=== PATIENT | female | born 1980 | race Caucasian/White ===

== ENCOUNTER 2020-07-28 21:13 | Emergency (ER) | payer MEDICAID ==
[~2020-07-28] VITALS: Ht 180.3 cm; Wt 54.4 kg
[2020-07-28 21:33] VITALS: BP 131/79
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
--- NOTE | 2020-07-28 21:51 | NUR ---
JEREMY DE LEÓN CAME TO THE ROOM FOR EVAL. PT WAS NOT THERE.
--- NOTE | 2020-07-28 21:54 | NUR ---
Patient eloped from facility. ER MD notified.
== END 2020-07-28 21:54 | disposition left against medical advice (07) ==
LOC: ER 21:19
DX: K08.89 Other specified disorders of teeth and supporting structures (principal); R50.9 Fever, unspecified; Z53.21 Procedure and treatment not carried out due to patient leaving prior to being seen by health care provider

== ENCOUNTER 2021-01-02 20:02 | Emergency (ER) | payer MEDICAID ==
[~2021-01-02] VITALS: Ht 180.3 cm; Wt 59.0 kg
--- NOTE | 2021-01-02 20:21 | NUR ---
BIBFRIEND FROM PT'S HOME. TO ER BED 12. AAOX4 BUT APPEARS INTOXICATED. NOT IN RESP DISTRESS. AMBULATORY. BROUHT IN FOR ALCOHOL WITHDRAWAL. DURING TRIAGE PT VERBALIZED THAT SHE HAVE THOUGHTS OF HARMING HERSELF BUT NO PLAN. UPON MY ASSESSMENT, PT DENIES SI NOR HI. PT REPORTS LAST DRINK THIS MORNING AND CONSUMMES A BOTTLE OF VODKA A DAYS. PT IS GOWN AND SITTER AT BEDSIDE. WILL MONITPR PT.
[2021-01-02 20:59] LABS: BILIRUBIN,URINE Negative (NEGATIVE); COLOR,URINE YELLOW (YELLOW); LEUKOCYTE ESTERASE ,URINE Negative (NEGATIVE); NITRITE, URINE Negative (NEGATIVE); PROTEIN,URINE Negative (NEGATIVE); UGLUCOSE Negative (NEGATIVE); UROBILINOGEN,URINE 0.2 EU/dL (0.2)
[2021-01-02] MEDS ORDERED: FOLIC ACID 1 MG TABLET ONE (20:59)
[2021-01-02] MEDS ORDERED: ONDANSETRON HCL/PF 4 MG/2 ML VIAL ONE (20:59)
[2021-01-02] MEDS ORDERED: THIAMINE HCL 100 MG TABLET ONE (20:59)
[2021-01-02] MEDS ORDERED: ONDANSETRON HCL/PF 4 MG/2 ML VIAL IVP ONE (21:00)
[2021-01-02] MEDS ORDERED: FOLIC ACID 1 MG TABLET PO ONE (21:00)
[2021-01-02] MEDS ORDERED: THIAMINE HCL 100 MG TABLET PO ONE (21:00)
[2021-01-02] MEDS ORDERED: IV NS 0.9% 1,000 ML BAG IV ONE (21:00)
[2021-01-02 21:01] LABS: BACTERIA,URINE Rare /HPF (None Seen); SQUAMOUS EPITHELIAL CELL,UR Few /HPF (None Seen); WBC,URINE NONE SEEN /HPF (0-3)
[2021-01-02 21:11] LABS: HEMOGLOBIN 11.8 g/dL (11.5-14.8)
[2021-01-02] MEDS ORDERED: LORAZEPAM 0.5 MG TABLET ONE (21:14)
[2021-01-02] MEDS ORDERED: LORAZEPAM 0.5 MG TABLET PO ONE (21:30)
[2021-01-02] MEDS ORDERED: LORAZEPAM INJ 2 MG/ML VIAL IV ONE (21:30)
[2021-01-02 21:50] LABS: BASOPHILS % (AUTO) 0.2 % (0.0-2.0); EOSINOPHILS % (AUTO) 0.7 % (0.0-6.0); HEMATOCRIT 36 % (33-45); LYMPHOCYTES # (AUTO) 3.6 /CMM (0.8-4.8); LYMPHOCYTES % (AUTO) 28.4 % (20.0-44.0); MEAN CORPUSCULAR HGB CONC 32 g/dl (31.0-36.0); MEAN CORPUSCULAR VOLUME 88 fL (82-100); MONOCYTES # (AUTO) 0.3 /CMM (0.1-1.30); MONOCYTES % (AUTO) 2.5 % (2.0-12.0); NEUTROPHILS # (AUTO) 8.6 /CMM (1.8-8.9); NEUTROPHILS % (AUTO) 68.2 % (43.0-81.0); PLATELET COUNT (AUTO) 156 /CMM (150-450); RED BLOOD CELL COUNT(AUTO) 4.12 MIL/uL (4.0-5.2); WHITE BLOOD COUNT (AUTO) 12.7 K/uL (4.3-11.0)
[2021-01-02 21:54] LABS: CALCIUM, SERUM 8.2 mg/dL (8.5-10.1); CARBON DIOXIDE 30 mmol/L (21-32); CHLORIDE 102 mmol/L (98-107); CREATININE 0.8 mg/dL (0.6-1.3); GLUCOSE 100 mg/dL (74-106); POTASSIUM 3.6 mmol/L (3.5-5.1); SODIUM SERUM 143 mmol/L (136-145); UREA NITROGEN, BLOOD 13 mg/dL (7-18)
[2021-01-02 22:02] LABS: ACETAMINOPHEN < 2 ug/ml (10-30); ALANINE AMINOTRANSFERASE 36 U/L (12-78); ALCOHOL, BLOOD 480 mg/dL (0-0); ALKALINE PHOSPHATASE 47 U/L (46-116); ASPARTATE AMINOTRANSFERASE 48 U/L (15-37); BILIRUBIN,DIRECT 0.1 mg/dL (0.0-0.2); BILIRUBIN,TOTAL 0.3 mg/dL (0.2-1.0); TOTAL PROTEIN, SERUM 7.7 g/dL (6.4-8.2)
--- NOTE | 2021-01-02 23:12 | NUR ---
PLEASE CALL LISA POWER, PT EMERGENCY CONTACT. TO TALK TO THE CABLE RESPOOLER.
--- NOTE | 2021-01-02 23:14 | NUR ---
LISA MONROY [phone]
--- NOTE | 2021-01-03 01:00 | NUR ---
PT PLACED ON 2 LITERS SUPPLEMENTAL O2 VIA N/C. PT SATTING 100%
--- NOTE | 2021-01-03 02:32 | NUR ---
PT ASLEEP AND RESTING COMFORTABLY IN BED. VSS. NO ACUTE DISTRESS NOTED. WILL CONTINUE TO MONITOR PT
--- NOTE | 2021-01-03 07:15 | NUR ---
PT ROADTESTED. PT AMBULATORY W/ STEADY GAIT
--- NOTE | 2021-01-03 07:15 | NUR ---
PT AMBULATED TO THE RESTROOM
--- NOTE | 2021-01-03 07:25 | NUR ---
REPORT GIVEN TO NADER ROONEY FOR NAN
--- NOTE | 2021-01-03 07:44 | NUR ---
CALLED LISA MONROY, NO ANSWER, LEFT VM
[2021-01-03] MEDS ORDERED: LORAZEPAM 1 MG TABLET ONE (07:50)
[2021-01-03] MEDS ORDERED: LORAZEPAM 1 MG TABLET PO ONE (08:00)
--- NOTE | 2021-01-03 08:10 | NUR ---
Patient discharged to home in stable condition. Written and verbal after care instructions given Patient and Patients friend anne verbalizes understanding of instruction.
[2021-01-03 08:11] VITALS: BP 117/67
== END 2021-01-03 08:12 | disposition home or self-care (01) ==
LOC: ER 20:03
DX: F10.10 Alcohol abuse, uncomplicated (principal); F32.9 Major depressive disorder, single episode, unspecified; R11.10 Vomiting, unspecified; F43.10 Post-traumatic stress disorder, unspecified; R63.0 Anorexia; R64 Cachexia; Y90.8 Blood alcohol level of 240 mg/100 ml or more; Z68.1 Body mass index [BMI] 19.9 or less, adult
CPT/HCPCS: 36415; 80048; 80076; 80299; 80307; 80320; 81001; 83690; 84703; 85025; 96361; 96374; 99285; J2405; J7030; G0480

== ENCOUNTER 2021-04-09 11:00 | Emergency (ER) | payer MEDICAID ==
[~2021-04-09] VITALS: Ht 180.3 cm; Wt 59.0 kg
[2021-04-09 11:51] LABS: BILIRUBIN,URINE MODERATE (NEGATIVE); LEUKOCYTE ESTERASE ,URINE NEGATIVE (NEGATIVE); NITRITE, URINE NEGATIVE (NEGATIVE); PROTEIN,URINE 30 mg/dl (NEGATIVE); UGLUCOSE NEGATIVE (NEGATIVE)
[2021-04-09] MEDS ORDERED: LIDOCAINE VISCOUS 2% UD 15 ML UDC MM ONE (12:00)
[2021-04-09] MEDS ORDERED: LORAZEPAM 1 MG TABLET PO ONE (12:00)
[2021-04-09] MEDS ORDERED: MAG HYDROX/AL HYDROX/SIMETH 30 ML UDC PO ONE (12:00)
[2021-04-09] MEDS ORDERED: LORAZEPAM 0.5 MG TABLET ONE (12:04)
[2021-04-09 12:05] LABS: COLOR,URINE DARK YELLOW (YELLOW)
[2021-04-09] MEDS ORDERED: MAG HYDROX/AL HYDROX/SIMETH 30 ML UDC ONE (12:05)
[2021-04-09] MEDS ORDERED: LIDOCAINE VISCOUS 2% UD 15 ML UDC ONE (12:05)
[2021-04-09 12:07] LABS: BACTERIA,URINE Few /HPF (None Seen); RBC,URINE 0-2 /HPF (0-2); SQUAMOUS EPITHELIAL CELL,UR Few /HPF (None Seen)
[2021-04-09] MEDS ORDERED: PARO10TA86 PO (12:39)
[2021-04-09] MEDS ORDERED: PENI500T PO (12:41)
[2021-04-09 12:49] VITALS: BP 135/90
--- NOTE | 2021-04-09 12:49 | NUR ---
Patient discharged to home in stable condition. Written and verbal after care instructions given. Patient verbalizes understanding of instruction.
== END 2021-04-09 12:50 | disposition home or self-care (01) ==
LOC: ER 11:03
DX: K12.2 Cellulitis and abscess of mouth (principal); F10.10 Alcohol abuse, uncomplicated; F32.9 Major depressive disorder, single episode, unspecified; F43.10 Post-traumatic stress disorder, unspecified; Z79.899 Other long term (current) drug therapy; Y90.9 Presence of alcohol in blood, level not specified
CPT/HCPCS: 81001; 84703-TC; 87086-TC; 87491; 87591

== ENCOUNTER 2021-08-05 15:18 | Emergency (ER) | payer MEDICAID ==
[~2021-08-05] VITALS: Ht 180.3 cm; Wt 56.7 kg
[~2021-08-05 15:18] MED LIST: PARO10TA86 PO; PENI500T PO
[2021-08-05] MEDS ORDERED: CIPR5DRO EACHEYE (16:31)
[2021-08-05] MEDS ORDERED: CHLO25CA22 PO (16:31)
[2021-08-05] MEDS ORDERED: CHLORDIAZEPOXIDE HCL 25 MG CAPSULE ONE (16:34)
[2021-08-05] MEDS: CHLORDIAZEPOXIDE HCL 25 MG CAPSULE PO ONE (16:38)
[2021-08-05 16:40] VITALS: BP 149/94
--- NOTE | 2021-08-05 16:42 | NUR ---
PATIENT A/OX4, BREATHING EVEN AND UNLABORED, NO SOB NOTED, NEEDS ATTENDED, KEPT COMFORTABLE. AMBULATORY WITHS TEADY GAIT. CALLED BF TO NURSING INSTRUCTOR PATIENT. Patient discharged to home in stable condition. Written and verbal after care instructions given. Patient verbalizes understanding of instruction. Instructed patient to avoid alcohol during Librium medication.
== END 2021-08-05 16:43 | disposition home or self-care (01) ==
LOC: ER 15:26
DX: F10.239 Alcohol dependence with withdrawal, unspecified (principal); H10.89 Other conjunctivitis; F43.10 Post-traumatic stress disorder, unspecified; R63.0 Anorexia; Y90.9 Presence of alcohol in blood, level not specified; Z68.1 Body mass index [BMI] 19.9 or less, adult; Z79.899 Other long term (current) drug therapy

== ENCOUNTER 2022-03-02 14:04 | Emergency (ER) | payer MEDICAID, OTHER ==
[~2022-03-02] VITALS: Ht 175.3 cm; Wt 59.0 kg
[~2022-03-02 14:04] MED LIST changes: +CHLO25CA22 PO; +CIPR5DRO EACHEYE
--- NOTE | 2022-03-02 14:31 | NUR ---
CALLED SAMY LIPSCOMB
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
--- NOTE | 2022-03-02 16:13 | NUR ---
Patient does not wish to proceed with medical care recommended by Dr. davis. Patient given information related to possible complications, up to and including , which could occur as a result of leaving the hospital at this time. Patient verbalizes understanding of risks involved due to leaving against medical advice. Patient has signed AMA form.
[2022-03-02 16:32] VITALS: BP 114/66
== END 2022-03-02 16:33 | disposition home or self-care (01) ==
LOC: ER 14:09
DX: S09.90XA Unspecified injury of head, initial encounter (principal); F10.229 Alcohol dependence with intoxication, unspecified; Z91.49 Other personal history of psychological trauma, not elsewhere classified; Z86.59 Personal history of other mental and behavioral disorders; Z79.899 Other long term (current) drug therapy; W22.8XXA Striking against or struck by other objects, initial encounter; Y93.89 Activity, other specified; Y92.410 Unspecified street and highway as the place of occurrence of the external cause; Y99.8 Other external cause status; Y90.8 Blood alcohol level of 240 mg/100 ml or more
CPT/HCPCS: 36415; 70450-TC; G0480